=== PATIENT | male | born 1980 | race Caucasian/White ===

== ENCOUNTER 2019-04-01 15:38 | Emergency (ER) | payer OTHER ==
[~2019-04-01] VITALS: Ht 175.3 cm; Wt 79.5 kg
[~2019-04-01 15:38] MED LIST: PERCOCET 325 MG1 TA2 PO
[2019-04-01 15:55] VITALS: BP 136/84; TEMP 98.4
[2019-04-01] MEDS ORDERED: FIORICET 325 MG1 TA1 PO (16:18)
[2019-04-01 17:25] VITALS: PULSE 79
== END 2019-04-01 17:25 | disposition home or self-care (01) ==
LOC: COL.ER 15:38
DX: R51 Headache (principal); F17.210 Nicotine dependence, cigarettes, uncomplicated; Z88.0 Allergy status to penicillin